=== PATIENT | female | born 1935 | race Caucasian/White ===

== ENCOUNTER → 2020-11-19 | Outpatient (CLI) | payer MEDICARE, BC ==
[~2020-11-19] MED LIST: AVAPRO TAB150 MG/TAB PO; BYSTOLIC5 MG PO; ELIQUIS 2.5 PO; GLUMETZA500 MG PO; LEVOXYL0.025 MG PO; LIPITOR 40MG TA40 MG PO; MOBIC 7.5MG7.5 MG PO; NORCO 325 MG-51 TAB PO; ZETIA 10MG TAB10 MG PO; ZOFRAN INJ4 MG/2 ML IV; ZOLOFT 50MG50 MG PO
== END ==
LOC: COL.VAS 13:36
DX: I48.91 Unspecified atrial fibrillation (principal); I08.1 Rheumatic disorders of both mitral and tricuspid valves

== ENCOUNTER 2021-01-21 07:35 | Day surgery (SDC) | payer MEDICARE, BC ==
[~2021-01-21] VITALS: Ht 152.5 cm; Wt 65.5 kg
[2021-01-21] VITALS (9 sets, daily range): BP systolic 118–150; BP diastolic 60–93; PULSE 52–77; TEMP 97.3
[~2021-01-21 07:35] MED LIST changes: -ELIQUIS 2.5 PO
[2021-01-21] MEDS ORDERED: ELIQUIS 2.5 PO (09:01)
[2021-01-21] MEDS ORDERED: BYSTOLIC5 MG PO (09:02)
[2021-01-21 09:03] LABS: POTASSIUM 4.4 mmol/L (3.4-5.0)
--- NOTE | 2021-01-21 09:10 | NUR ---
Pt scheduled for 929 DASHAWN/CV with Dr Gregg. Pt prepped and ready at this time. MD contacted by RN regarding this. MD states he will call back when available.
[2021-01-21 09:13] LABS: INR 1.4 (0.8-3.0); PROTHROMBIN TIME 15.8 SECONDS (9.7-12.8)
[2021-01-21 09:38] LABS: THYROID STIMULATING HORMONE 6.93 uIU/mL (0.465-4.680)
--- NOTE | 2021-01-21 09:46 | NUR ---
This RN following up at 0935 regarding DASHAWN/CV time with Dr Gregg. MD unavailable at this time and states that procedure may be conducted by Dr Dye if available. This RN requesting that Dr Gregg contact Dr Dye regarding this request. Pt updated at this time regarding situation by this RN.
--- NOTE | 2021-01-21 11:02 | NUR ---
Following CV, pt bradycardic and hypotensive. CAFETERIA COOK present managing sedation. Ephedrine 10mg administered by CAFETERIA COOK at 1033. Pt HR and BP increasing. Once pt awake, HR maintaining 60-70bpm and SBP 120's. Pt denies any dizziness, SOA, or other symptoms. Frequent short pauses noted on ECG monitor. 12-Lead EKG obtained. MD contacted by RN and updated regarding pt VS's, rhythm, and EKG availability for review. Orders for pt to stay for observation for 2hrs. Order confirmed with MD. Bedside handoff from this RN to LINDA Stevens in [facility]; informed about 2hr observation. Pt remains asymptomatic with no s/sx of distress noted.
--- NOTE | 2021-01-21 11:05 | NUR ---
microfilm technician Max asked to monitor pt's tele following CV.
--- NOTE | 2021-01-21 13:22 | NUR ---
DC instructions reviewed with pt and daughter, both express understanding. Pt is awake, tolerating PO fluids without issue. She has denied desire for food. Dr Gregg was updated by phone just after noon that pt remained stable, no increase in frequency of pauses on cardiac montior, VS were remainging stable post cardioversion. He stated he wanted pt to be mornitor x2 hr, and as long as she remained stable, she could discharge home. She has been on tele, and monitored by tele desk since procedure. Pt is stable on feet to restroom with cane. No c/o dizziness or feeling lightheaded with activity. INT DC'd with catheter intact. She was assisted out by wheelchair to daughter's car with belongings.
== END 2021-01-21 13:22 | disposition home or self-care (01) ==
LOC: COL.CAR 07:35
PROVIDERS: Internal Medicine Interventional Cardiology
DX: I48.0 Paroxysmal atrial fibrillation (principal); M19.90 Unspecified osteoarthritis, unspecified site; J30.1 Allergic rhinitis due to pollen; E11.9 Type 2 diabetes mellitus without complications; R26.81 Unsteadiness on feet; Z79.82 Long term (current) use of aspirin; Z79.899 Other long term (current) drug therapy; Z79.84 Long term (current) use of oral hypoglycemic drugs; Z79.01 Long term (current) use of anticoagulants
CPT/HCPCS: J2370; J2704; J7030

== ENCOUNTER → 2021-10-06 | Outpatient (CLI) | payer MEDICARE, BC ==
[~2021-10-06] MED LIST changes: +ELIQUIS 2.5 PO
[2021-10-06 15:58] LABS: HEMATOCRIT 38.3 % (37.0-47.0); HEMOGLOBIN 12.8 g/dl (12.5-16.0); MEAN CELL VOLUME 89 fl (80.0-100.0); MEAN CORPUSCULAR HEMOGLOBIN 30 pg (27-31); MEAN CORPUSCULAR HGB CONC 33 g/dl (33.0-37.0); MEAN PLATELET VOLUME 10.5 fl (7.4-10.4); PLATELET COUNT 162 K/mm3 (130-400); REDCELL DISTRIBUTION WIDTH-CV 13.3 % (11.5-14.5)
[2021-10-06 16:10] LABS: CALCIUM 9.5 mg/dL (8.4-10.2); CREATININE, serum 0.99 mg/dL (0.57-1.11); POTASSIUM 4.7 mmol/L (3.5-4.5)
== END ==
LOC: COL.LAB 15:13
PROVIDERS: Internal Medicine Interventional Cardiology
DX: Z01.812 Encounter for preprocedural laboratory examination (principal); I48.91 Unspecified atrial fibrillation; Z20.822 Contact with and (suspected) exposure to COVID-19